=== PATIENT | female | born 1990 | race African-American/Black ===

== ENCOUNTER 2020-09-15 13:58 | Emergency (ER) | payer MEDICAID, MEDICARE ==
[~2020-09-15] VITALS: Ht 162.6 cm; Wt 94.0 kg
[~2020-09-15 13:58] MED LIST: DM/P295L17; TYLENOL; VICODIN
[2020-09-15] MEDS ORDERED: IBUPROFEN 600MG TABLET PO ONE (14:45)
[2020-09-15] MEDS ORDERED: BACITRACIN 15GM TUBE TOP ONE (15:15)
[2020-09-15] MEDS ORDERED: IBUP-2029 MT (15:20)
[2020-09-15] MEDS ORDERED: BACITRACIN ZINC OINT UDPKT TOP NR (15:30)
[2020-09-15 15:37] VITALS: BP 148/78
== END 2020-09-15 15:37 | disposition home or self-care (01) ==
LOC: ER 13:58
DX: M25.512 Pain in left shoulder (principal); M25.522 Pain in left elbow; M25.521 Pain in right elbow; I10 Essential (primary) hypertension; E05.90 Thyrotoxicosis, unspecified without thyrotoxic crisis or storm; V29.88XA Motorcycle rider (driver) (passenger) injured in other specified transport accidents, initial encounter; Y93.89 Activity, other specified; Y92.410 Unspecified street and highway as the place of occurrence of the external cause
CPT/HCPCS: 73030; 73080; 81025; 99284

== ENCOUNTER 2020-09-18 14:03 | Emergency (ER) | payer MEDICAID ==
[~2020-09-18] VITALS: Ht 162.6 cm; Wt 92.0 kg
[~2020-09-18 14:03] MED LIST changes: +IBUP-2029 MT
[2020-09-18 14:17] VITALS: BP 152/85
[2020-09-18] MEDS ORDERED: HYDR-4001 MT (15:52)
== END 2020-09-18 16:31 | disposition home or self-care (01) ==
LOC: ER 14:03
DX: M25.522 Pain in left elbow (principal); I10 Essential (primary) hypertension; Z86.39 Personal history of other endocrine, nutritional and metabolic disease; F12.10 Cannabis abuse, uncomplicated; S50.02XA Contusion of left elbow, initial encounter; W18.30XA Fall on same level, unspecified, initial encounter; Y93.89 Activity, other specified; Y92.89 Other specified places as the place of occurrence of the external cause; Y99.8 Other external cause status
CPT/HCPCS: 73080; 99283